=== PATIENT | male | born 1965 | race Two or more races ===

== ENCOUNTER 2018-04-20 06:00 | Emergency (ER) | payer OTHER ==
[~2018-04-20] VITALS: Ht 190.5 cm; Wt 104.3 kg
[2018-04-20 06:04] VITALS: BP 162/104
--- NOTE | 2018-04-20 06:11 | Emergency Room Report ---
History of Present Illness General Chief Complaint: Abdominal Pain Source: Patient, EMS (JELLY CARLOS M.D.) Present Illness HPI This is a 53-year-old male who has a history of high blood pressure and reflux. He presents with chief complaint of epigastric pain and burning sensation in his throat. He said this felt like his reflux. His been ongoing for the last 8 hours. He is out of his reflux medication. Denies any fever chills. Nothing made it better. Nothing made it worse. No exertional component. Radiating from epigastric area to his throat. No radiation to the arm. No diaphoresis, shortness of breath, or nausea or vomiting. Similar symptom in the past. Said that he is compliant with his medication. Call 911. EMS did not give him any medication. (JELLY CARLOS M.D.) Allergies: Coded Allergies: No Known Allergies (Unverified , 04/20/18) Patient History Past Medical History: see triage record, old chart reviewed Past Surgical History: other Pertinent Family History: none Social History: Denies: smoking Immunizations: other Reviewed Nursing Documentation: PMH: Agreed; PSxH: Agreed (JELLY CARLOS M.D.) Nursing Documentation-PMH Past Medical History: No History, Except For (JELLY CARLOS M.D.) Review of Systems Eye: Denies: eye pain, blurred vision ENT: Denies: ear pain, nose congestion, throat swelling Respiratory: Denies: cough, shortness of breath Cardiovascular: Reports: chest pain; Denies: palpitations Gastrointestinal: Reports: abdominal pain; Denies: diarrhea, nausea, vomiting Musculoskeletal: Denies: back pain, joint pain Skin: Denies: rash Neurological: Denies: headache, numbness Endocrine: Denies: increased thirst, increased urine Hematologic/Lymphatic: Denies: easy bruising All Other Systems: negative except mentioned in HPI (JELLY CARLOS M.D.) Physical Exam Vital Signs Date Time Temp Pulse Resp B/P (MAP) Pulse Ox O2 Delivery O2 Flow Rate FiO2 04/20/18 05:58 98.7 73 14 162/104 100 Room Air 98.8 vitals with high blood pressure Sp02 EP Interpretation: reviewed, normal General Appearance: well appearing, no apparent distress, alert Head: normocephalic, atraumatic Eyes: bilateral eye PERRL, bilateral eye EOMI ENT: hearing grossly normal, normal pharynx Neck: full range of motion, supple, no meningismus Respiratory: chest non-tender, lungs clear, normal breath sounds Cardiovascular #1: regular rate, rhythm, no murmur Gastrointestinal: normal bowel sounds, non tender, no mass, no organomegaly, no bruit, non-distended Musculoskeletal: back normal, gait/station normal, normal range of motion Psychiatric: mood/affect normal Skin: warm/dry (JELLY CARLOS M.D.) Medical Decision Making Diagnostic Impression: Primary Impression: Epigastric abdominal pain Additional Impression: Hypertension Qualified Codes: I10 - Essential (primary) hypertension ER Course Patient with symptoms consistent with GERD. Other differential include gastritis, ulcer, ACS, PE, dissection to name a few. Labs pending. EKG unremarkable. I will sign this patient out to Dr. Ramírez for final disposition. (JELLY CARLOS M.D.) ER Course This patient was signed out to me from Dr. Carlos. He had presented with a plus hours of ongoing epigastric pain and burning sensation through his chest and throat. He has a history of GERD. I reassessed this patient and he was sleeping and appeared comfortable after getting treatment for GERD. He received Protonix and Pepcid IV. He received a GI cocktail. I considered other concerning differentials, to include appendicitis, cholelithiasis, cholecystitis, pancreatitis, perforated viscus, aortic aneurysm , and pyelonephritis to name a few. However, laboratory workup in combination with medical and surgical history and physical exam makes these unlikely at this time. I did educate the patient on close return precautions and followup instructions. Laboratory Tests Test 04/20/18 06:10 White Blood Count 8.5 K/UL (4.8-10.8) Red Blood Count 5.06 M/UL (4.70-6.10) Hemoglobin 14.6 G/DL (14.2-18.0) Hematocrit 45.6 % (42.0-52.0) Mean Corpuscular Volume 90 FL (80-99) Mean Corpuscular Hemoglobin 28.9 PG (27.0-31.0) Mean Corpuscular Hemoglobin Concent 32.0 G/DL (32.0-36.0) Red Cell Distribution Width 12.8 % (11.6-14.8) Platelet Count 251 K/UL (150-450) Mean Platelet Volume 6.5 FL (6.5-10.1) Neutrophils (%) (Auto) 72.9 % (45.0-75.0) Lymphocytes (%) (Auto) 16.4 % (20.0-45.0) L Monocytes (%) (Auto) 9.3 % (1.0-10.0) Eosinophils (%) (Auto) 0.9 % (0.0-3.0) Basophils (%) (Auto) 0.6 % (0.0-2.0) Sodium Level 138 MMOL/L (136-145) Potassium Level 4.8 MMOL/L (3.5-5.1) Chloride Level 103 MMOL/L (98-107) Carbon Dioxide Level 31 MMOL/L (21-32) Anion Gap 4 mmol/L (5-15) L Blood Urea Nitrogen 22 mg/dL (7-18) H Creatinine 1.2 MG/DL (0.55-1.30) Estimate Glomerular Filtration Rate > 60 mL/min (>60) Glucose Level 116 MG/DL (74-106) H Calcium Level 8.9 MG/DL (8.5-10.1) Total Bilirubin 0.2 MG/DL (0.2-1.0) Aspartate Amino Transferase (AST) 19 U/L (15-37) Alanine Aminotransferase (ALT) 34 U/L (12-78) Alkaline Phosphatase 105 U/L (46-116) Total Creatine Kinase 129 U/L (26-308) Creatine Kinase MB 2.1 NG/ML (0.0-3.6) Creatine Kinase MB Relative Index 1.6 Troponin I 0.000 ng/mL (0.000-0.056) Total Protein 7.6 G/DL (6.4-8.2) Albumin 3.5 G/DL (3.4-5.0) Globulin 4.1 g/dL Albumin/Globulin Ratio 0.9 (1.0-2.7) L (Sofya Ramírez DO) EKG Diagnostic Results Rate: normal Rhythm: NSR ST Segments: no acute changes ASA given to the pt in ED: Yes (JELLY CARLOS M.D.) Rate: normal Rhythm: NSR ST Segments: no acute changes (DesireeSofya Bisi ) Rhythm Strip Diag. Results Rhythm Strip Time: 06:10 EP Interpretation: yes Rate: 79 Rhythm: NSR, no PVC's, no ectopy (JELLY CARLOS M.D.) EP Interpretation: yes Rate: 70's Rhythm: NSR, no PVC's, no ectopy (Sofya Ramírez DO) Chest X-Ray Diagnostic Results Chest X-Ray Diagnostic Results : Chest X-Ray Ordered: Yes # of Views/Limited/Complete: 1 View Indication: Chest Pain EP Interpretation: Yes Interpretation: no consolidation, no effusion, no pneumothorax, no acute cardiopulmonary disease Impression: No acute disease Electronically Signed by: Jelly Carlos MD (JELLY CARLOS M.D.) Chest X-Ray Diagnostic Results : Chest X-Ray Ordered: Yes # of Views/Limited/Complete: 1 View Indication: Chest Pain EP Interpretation: Yes Interpretation: no consolidation, no effusion, no pneumothorax, no acute cardiopulmonary disease, other - limited secondary to poor inspiration. Impression: No acute disease Electronically Signed by: Jose (DesireeSofya Bisi ) Last Vital Signs Date Time Temp Pulse Resp B/P (MAP) Pulse Ox O2 Delivery O2 Flow Rate FiO2 04/20/18 06:04 98.0 72 16 162/104 100 Room Air 98.0 (JELLY CARLOS M.D.) Status: improved [facility] Disposition: HOME, SELF-CARE Condition: Improved Scripts Famotidine (PEPCID AC) 20 Mg Tablet 20 MG PO once daily, #30 TAB Prov: Sofya Ramírez DO 04/20/18 Esomeprazole Magnesium (NEXIUM) 40 Mg Capsule.dr 40 MG ORAL DAILY, #60 CAP Prov: Sofya Ramírez 04/20/18 Patient Instructions: Abdominal Pain, Adult JELLY CARLOS M.D. Apr 20, 2018 06:11 Sofya Ramírez DO Apr 20, 2018 07:55
[2018-04-20] MEDS ORDERED: Lidocaine 2% Visc 15ml soln ORAL ONE ×2 (06:15→08:15)
[2018-04-20] MEDS ORDERED: Pantoprazole Inj IVP ONE (06:15)
[2018-04-20] MEDS ORDERED: Aspirin Baby 81mg ORAL ONE (06:15)
[2018-04-20] MEDS ORDERED: Mylanta II UD 30ml ORAL ONE (06:15)
[2018-04-20 06:28] LABS: BASOPHILS % (AUTO) 0.6 % (0.0-2.0); EOSINOPHILS % (AUTO) 0.9 % (0.0-3.0); HEMATOCRIT 45.6 % (42.0-52.0); HEMOGLOBIN 14.6 G/DL (14.2-18.0); LYMPHOCYTES % (AUTO) 16.4 % (20.0-45.0); MEAN CORPUSCULAR VOLUME 90 FL (80-99); MONOCYTES % (AUTO) 9.3 % (1.0-10.0); NEUTROPHILS % (AUTO) 72.9 % (45.0-75.0); PLATELET COUNT 251 K/UL (150-450); RED BLOOD COUNT 5.06 M/UL (4.70-6.10); RED CELL DISTRIBUTION WIDTH 12.8 % (11.6-14.8); WHITE BLOOD COUNT 8.5 K/UL (4.8-10.8)
[2018-04-20 06:38] LABS: ANION GAP 4 mmol/L (5-15); BLOOD UREA NITROGEN 22 mg/dL (7-18); CALCIUM 8.9 MG/DL (8.5-10.1); CARBON DIOXIDE 31 MMOL/L (21-32); CHLORIDE 103 MMOL/L (98-107); CREATININE 1.2 MG/DL (0.55-1.30); POTASSIUM 4.8 MMOL/L (3.5-5.1); SODIUM 138 MMOL/L (136-145)
[2018-04-20 06:51] LABS: ALANINE AMINOTRANSFERASE 34 U/L (12-78); ALBUMIN 3.5 G/DL (3.4-5.0); ALBUMIN/GLOBULIN RATIO 0.9 (1.0-2.7); ALKALINE PHOSPHATASE 105 U/L (46-116); ASPARTATE AMINO TRANSFERASE 19 U/L (15-37); BILIRUBIN,TOTAL 0.2 MG/DL (0.2-1.0); CKMB 2.1 NG/ML (0.0-3.6); CREATINE KINASE 129 U/L (26-308)
--- NOTE | 2018-04-20 07:21 | Diagnostic Imaging Report ---
EXAM: XR Chest, 1 View CLINICAL HISTORY: CP TECHNIQUE: Frontal view of the chest. COMPARISON: No relevant prior studies available. FINDINGS: Lungs: Probable mild bibasilar atelectasis. Pleural space: No pneumothorax. No significant effusion. Heart: Cardiovascular silhouette, mildly enlarged and likely accentuated by low lung volume. Mediastinum: Unremarkable. Bones/joints: Unremarkable. Vasculature: Mildly tortuous thoracic aorta. Tubes, lines and devices: Overlying chest leads obscure portion of the chest. IMPRESSION: Mild cardiomegaly. Low lung volumes limit evaluation. Mild bibasilar atelectasis
[2018-04-20] MEDS ORDERED: NEXIUM40 MG ORAL (07:57)
[2018-04-20] MEDS ORDERED: PEPCID AC20 M2 PO (07:57)
[2018-04-20 08:14] VITALS: BP 158/85
[2018-04-20 08:25] LABS: APPEARANCE,URINE CLEAR; BILIRUBIN, URINE NEGATIVE (NEGATIVE); COLOR,URINE PALE YELLOW; GLUCOSE, URINE (UA) NEGATIVE (NEGATIVE); KETONES,URINE NEGATIVE (NEGATIVE); LEUKOCYTE ESTERASE ,URINE NEGATIVE (NEGATIVE); NITRITE,URINE NEGATIVE (NEGATIVE); PH,URINE 5 (4.5-8.0); PROTEIN,URINE NEGATIVE (NEGATIVE); UROBILINOGEN,URINE NORMAL MG/DL (0.0-1.0)
--- NOTE | 2018-04-21 13:57 | Cardiology Report ---
APPROVED REPORT EKG Measurement Heart [id number] Normal sinus rhythm Possible Left atrial enlargement Borderline ECG
== END 2018-04-20 08:17 | disposition home or self-care (01) ==
LOC: EDBD 06:00 → EMR 06:30
DX: R10.13 Epigastric pain (principal); I10 Essential (primary) hypertension
CPT/HCPCS: 36415; 71045; 80053; 80307; 81003; 82550; 82553; 84484; 85025; 93005; 96374; 96375; 99284; C9113; S0028

== ENCOUNTER 2019-09-24 04:53 | Emergency (ER) | payer OTHER ==
[~2019-09-24] VITALS: Ht 185.4 cm; Wt 86.2 kg
[~2019-09-24 04:53] MED LIST: NEXIUM40 MG ORAL; PEPCID AC20 M2 PO
--- NOTE | 2019-09-24 04:58 | NUR ---
ED Nurse Note: Patient brought in by ambulance, RA [id number], with complaints of burning in throat shortly after eating. ERMD at bedside.
[2019-09-24 04:59] VITALS: BP 156/84
[2019-09-24] MEDS ORDERED: Lidocaine 2% Visc 15ml soln ORAL ONE (05:00)
[2019-09-24] MEDS ORDERED: Dicyclomine HCl 10mg/5ml oral soln ORAL ONE (05:00)
--- NOTE | 2019-09-24 05:04 | Emergency Room Report ---
History of Present Illness General Chief Complaint: Abdominal Pain Source: Patient, EMS Present Illness HPI Patient is a 53-year-old male who presents after increased burning sensation to his throat as well as to his epigastric area. Denies any radiation of pain. Onset of symptoms this morning. Had similar symptoms in the past. Prior history of HIV as well as acid reflux. He had been taking omeprazole. He reports having onset of symptoms after eating an entire meringue pie.He denies any fever or vomiting. Denies any exertional symptoms. Allergies: Coded Allergies: No Known Allergies (Unverified , 04/20/18) Patient History Past Medical History: see triage record, HIV Reviewed Nursing Documentation: PMH: Agreed; PSxH: Agreed Review of Systems All Other Systems: negative except mentioned in HPI Physical Exam Vital Signs Date Time Temp Pulse Resp B/P (MAP) Pulse Ox O2 Delivery O2 Flow Rate FiO2 09/24/19 04:56 97.7 84 16 156/84 (108) 97 Room Air Sp02 EP Interpretation: reviewed, normal General Appearance: normal inspection, well appearing, no apparent distress, alert, GCS 15, non-toxic Head: atraumatic ENT: normal ENT inspection, hearing grossly normal, normal pharynx, no angioedema, normal voice, other - no thrush Neck: normal inspection, full range of motion, supple, no bony tend Respiratory: normal inspection, lungs clear, normal breath sounds, no respiratory distress, no retraction, no wheezing Cardiovascular #1: regular rate, rhythm, no edema Gastrointestinal: normal inspection, normal bowel sounds, non tender, soft, no guarding, no hernia Genitourinary: no CVA tenderness Musculoskeletal: normal inspection, back normal, normal range of motion Neurologic: alert, motor strength/tone normal, cement paver III-XII nml as tested, oriented x3, responsive, speech normal, normal inspection Psychiatric: normal inspection, judgement/insight normal, mood/affect normal Medical Decision Making Diagnostic Impression: Primary Impression: GERD (gastroesophageal reflux disease) ER Course Patient presented for burning sensation to his throat as well as to his epigastric area. Differential diagnosis include was not limited to gastritis, reflux, thrush, among others. Patient has a benign exam and does not appear to require any imaging or laboratory testing at this time. Patient appears to have some acid reflux which may be causing his discomfort. Does not have any evidence of current cardiac disease. He was advised to follow-up with his primary care physician for recheck. Is given medications for symptomatic treatment the emergency department. The patient is advised to follow up with primary care doctor in 1-2 days. Patient is advised to return if any worsening condition or if any changes in status that are concerning. This report is dictated with [employer] dredge worker software which may occasionally lead to discrepancies related to use of this software. Last Vital Signs Date Time Temp Pulse Resp B/P (MAP) Pulse Ox O2 Delivery O2 Flow Rate FiO2 09/24/19 04:56 97.7 84 16 156/84 (108) 97 Room Air Status: improved Disposition: HOME, SELF-CARE Condition: Stable Scripts Dicyclomine Hcl* (DICYCLOMINE HCL*) 10 Mg Capsule 10 MG ORAL QID, #20 CAP Prov: Jose Rivas MD 09/24/19 Esomeprazole Magnesium (NEXIUM) 40 Mg Capsule.dr 40 MG ORAL DAILY, #30 CAP Prov: Jose Rivas MD 09/24/19 Referrals: NOT CHOSEN IPA/,REFERRING (PCP) Jose Rivas MD Sep 24, 2019 05:04
[2019-09-24] MEDS ORDERED: NEXIUM40 MG ORAL (05:06)
[2019-09-24] MEDS ORDERED: DICYCLOMINE HCL10 MG ORAL (05:06)
--- NOTE | 2019-09-24 05:19 | NUR ---
ER DISCHARGE NOTE: Patient tolerated medication administration well. Patient is cleared to be discharged per ERMD, pt is aox4, on room air, with stable vital signs. pt was given dc and prescription instructions, pt was able to verbalize understanding, pt id band removed without complications. pt is able to ambulate with steady gait. pt took all belongings.
[2019-09-24 05:20] VITALS: BP 156/84
== END 2019-09-24 05:21 | disposition home or self-care (01) ==
LOC: EDBD 04:53 → EDUNIT# 04:53 → EMR 05:01
DX: K21.9 Gastro-esophageal reflux disease without esophagitis (principal); B20 Human immunodeficiency virus [HIV] disease
CPT/HCPCS: 99283